=== PATIENT | female | born 1950 | race Caucasian/White ===

== ENCOUNTER 2019-02-07 10:17 | Day surgery (SDC) | payer OTHER ==
[~2019-02-07] VITALS: Ht 162.6 cm; Wt 65.9 kg
--- NOTE | 2019-02-07 11:26 | PREAC ---
Date/Time of Note Date/Time of Note DATE: 02/07/19 TIME: 11:25 Anesthesia Eval and Record Evaluation Time Pre-Procedure Interview DATE: 02/07/19 TIME: 11:25 Age 68 Sex female NPO: 8 hrs Preoperative diagnosis CHANGE IN BOWEL HABITS, SCREENING FOR COLON CANCER Planned procedure COLONOSCOPY Past Medical History Past Medical History: Includes Cardio: Dyslipidemia GI: Other (ASYMPTOMATIC GALLSTONES) Surgery & Anesthesia Issues No known issue Meds Anticoagulation: No Beta Rhea within 24 hr: No Reason Beta Rhea not given: Pt. not on B-Rhea Reported Medications [Atorvastatin] No Conflict Check 02/07/19 Meds reviewed: Yes Allergies Coded Allergies: No Known Allergy (Unverified , 02/07/19) Allergies Reviewed: Yes Labs/Studies Labs Reviewed: Other (NONE ) test: N/A Studies: ECG (EKG STRIP) Pre-procedure Exam Airway: Adequate mouth opening, Adequate thyromental dist Mallampati: Mallampati II Teeth: Normal Lung: Normal Heart: Normal ASA Physical Status ASA physical status: 2 Emergency: None Planned Anesthetic General/MAC: MAC Planned Pain Management Parenteral pain med, Local by surgeon Pre-operative Attestations Prior to commencing anesthesia and surgery, the patient was re-evaluated, there was verification of: *The patient's identity *The results of appropriate recent lab work and preoperative vital signs *The above evaluation not changing prior to induction *Anesthetic plan, risk benefits, alternative and complications discussed with patient/family; questions answered; patient/family understands, accepts and wishes to proceed. RAE WALLACE Feb 07, 2019 11:26
[2019-02-07 11:47] VITALS: Ht 162.6 cm; Wt 65.9 kg
[2019-02-07] MEDS ORDERED: ATORVASTATIN (11:53)
[2019-02-07] MEDS ORDERED: PROPOFOL 20 ML ONE (11:56)
[2019-02-07 12:12] VITALS: BP 142/65; PULSE 68; RESP 21
[2019-02-07 13:07] VITALS: BP 148/69; PULSE 71; RESP 16
--- NOTE | 2019-02-07 14:16 | PAC ---
Date/Time of Note Date/Time of Note DATE: 02/07/19 TIME: 14:15 Post-Anesthesia Notes Post-Anesthesia Note Last documented vital signs BP 115/60 HR 86 SPO2 99% TEMP 98.0 RR 16 Activity: WNL Respiratory function: WNL Cardiovascular function: WNL Mental status: Baseline Pain reasonably controlled: Yes Hydration appropriate: Yes Nausea/Vomiting absent: Yes RAE WALLACE Feb 07, 2019 14:16
== END 2019-02-07 12:58 | disposition home or self-care (01) ==
LOC: GIL 10:17
PROVIDERS: ATTEND Internal Medicine Gastroenterology
DX: Z12.11 Encounter for screening for malignant neoplasm of colon (principal); K64.8 Other hemorrhoids